=== PATIENT | male | born 1960 | race Caucasian/White ===

== ENCOUNTER 2019-06-22 13:57 | Emergency (ER) | payer MEDICARE, OTHER ==
[~2019-06-22] VITALS: Ht 185.4 cm; Wt 83.9 kg
[2019-06-22 14:49] LABS: BASOPHILS ABSOLUTE AUTO 0.05 K/mm3 (0.00-0.23); BASOPHILS PERCENT AUTO 1 % (0-2); EOSINOPHILS PERCENT AUTO 1 % (0-6); Hematocrit 39.9 % (37.0-53.0); Hemoglobin 12.8 g/dL (13.5-17.5); IMMATURE GRAN ABSOLUTE AUTO 0.02 K/mm3 (0.00-0.10); IMMATURE GRAN PERCENT AUTO 0 % (0-1); LYMPHOCYTES PERCENT AUTO 28 % (21-46); MONOCYTES ABSOLUTE AUTO 0.52 K/mm3 (0.16-1.47); MONOCYTES PERCENT AUTO 7 % (4-13); Mean Corpuscular HGB 29.6 pg (26.0-34.0); Mean Corpuscular HGB Conc 32.1 g/dL (31.5-36.5); Mean Corpuscular Volume 92 fL (80-100); Mean Platelet Volume 9.7 fL (9.1-12.4); NEUTROPHILS ABSOLUTE AUTO 4.57 K/mm3 (1.96-9.15); NEUTROPHILS PERCENT AUTO 63 % (41-73); Platelet Count 396 K/mm3 (150-400); RDW Coefficient Variation 12.8 % (11.7-14.2); RDW Standard Deviation 43.5 fL (35.1-46.3); Red Blood Cell Count 4.32 M/mm3 (4.30-5.90); White Blood Cell Count 7.26 K/mm3 (4.00-11.30)
[2019-06-22 15:11] LABS: Alanine Aminotransfer (ALT/SGP 15 U/L (12-78); Albumin, Blood 3.3 g/dL (3.4-5.0); Albumin/Globulin Ratio 0.9 (0.8-1.8); Alk Phos 76 U/L (50-136); Anion Gap 6 mmol/L (6-16); Aspartate Aminotrans (AST/SGOT 13 U/L (12-37); Bilirubin, Total 0.3 mg/dL (0.1-1.0); Blood Urea Nitrogen 20 mg/dL (8-24); Bun/Creatinine Ratio 32.3 (12.0-20.0); CO2, Blood 25 mmol/L (21-32); Chloride, Blood 108 mmol/L (98-108); Creatinine, Blood 0.62 mg/dL (0.60-1.20); Globulin, Blood 3.6 g/dL (2.2-4.0); Glomerular Filtration Rate >60 (60-); Glucose, Blood 176 mg/dL (70-99); Sodium, Blood 139 mmol/L (136-145); Total Protein, Blood 6.9 g/dL (6.4-8.2); Valproic Acid 50.4 ug/mL (50.0-100.0)
[2019-06-22] MEDS ORDERED: HYDCOR2.5C PR (15:41)
[2019-06-22] MEDS ORDERED: MELATONIN5 M1 PO (15:42)
[2019-06-22] MEDS ORDERED: Depakote125 MG PO (15:42)
[2019-06-22] MEDS ORDERED: Prinivil10 MG PO (15:42)
[2019-06-22] MEDS ORDERED: QUETIAPINE FUMA50 MG PO (15:43)
[2019-06-22] MEDS ORDERED: Vitamin B-121000 MCG PO (15:43)
[2019-06-22] MEDS ORDERED: ELIQUIS5 M2 PO (15:43)
[2019-06-22] MEDS ORDERED: DIVA500EC PO (15:44)
[2019-06-22] MEDS ORDERED: COLACE 2-IN-11 EACH PO (15:44)
[2019-06-22] MEDS ORDERED: BACL10 PO (15:44)
[2019-06-22] MEDS ORDERED: TIZA4 PO (15:45)
[2019-06-22] MEDS ORDERED: ACETAMINOPHEN650 MG PO (15:45)
[2019-06-22] MEDS ORDERED: LIDO700A20 TOP (15:45)
[2019-06-22] MEDS ORDERED: Zofran8 MG PO (15:46)
== END 2019-06-22 16:55 | disposition home or self-care (01) ==
LOC: ER 13:57
PROVIDERS: Emergency Medicine
DX: R55 Syncope and collapse (principal); L53.9 Erythematous condition, unspecified; E11.9 Type 2 diabetes mellitus without complications; I10 Essential (primary) hypertension; F32.9 Major depressive disorder, single episode, unspecified; Z86.711 Personal history of pulmonary embolism; Z79.899 Other long term (current) drug therapy; Z79.01 Long term (current) use of anticoagulants
CPT/HCPCS: 36415; 80053; 80164; 83735; 85025; 93005; 93010; 99284-25